=== PATIENT | female | born 1995 ===

== ENCOUNTER 2023-11-20 11:43 | Inpatient (IN) | payer BC ==
[~2023-11-20] VITALS: Ht 170.2 cm; Wt 91.4 kg
[2023-12-04] VITALS (18 sets, daily range): BP systolic 108–137; BP diastolic 69–87; PULSE 73–116; TEMP 98–98.2
--- NOTE | 2023-12-04 05:40 | NUR ---
Ambulatory to unit for scheduled C/S, accompanied by spouse. Oriented to plan of care.
[2023-12-04] MEDS ORDERED: LR 1,000 ML IV SCH ×2 (06:00)
[2023-12-04] MEDS ORDERED: Ondansetron 4 MG/2 ML VIAL IV SCH (06:00)
[2023-12-04] MEDS ORDERED: NATURAL IRON65 MG (06:25)
[2023-12-04] MEDS ORDERED: PREDNISONE10 MG PO (06:25)
[2023-12-04] MEDS ORDERED: LEXAPRO 10MG10 MG PO (06:26)
[2023-12-04] MEDS ORDERED: PRENATAL TABLET PO (06:26)
[2023-12-04 06:43] LABS: BASO % 0.3 % (0.0-2.0); EOS # 0.1 K/mm3 (0.0-0.7); EOS % 0.6 % (0.0-4.0); GRAN # 7.4 K/mm3 (1.4-6.5); GRAN % 69.5 % (42.2-75.2); LYMPH # 2.6 K/mm3 (1.2-3.4); LYMPH % 24.1 % (20.0-51.0); MEAN CELL VOLUME 93 fl (80.0-100.0); MEAN CORPUSCULAR HEMOGLOBIN 31 pg (27-31); MEAN CORPUSCULAR HGB CONC 34 g/dl (33.0-37.0); MONO # 0.5 K/mm3 (0.1-0.6); PLATELET COUNT 317 K/mm3 (130-400); RED BLOOD COUNT 3.86 M/mm3 (4.10-5.30); REDCELL DISTRIBUTION WIDTH-CV 13.2 % (11.5-14.5)
[2023-12-04 06:48] LABS: HEMATOCRIT 35.8 % (37.0-47.0)
[2023-12-04] MEDS ORDERED: Phenylephrine 10 MG/ML VIAL ONE (07:04)
[2023-12-04] MEDS ORDERED: Oxytocin 10 UNITS/ML VIAL ONE (07:04)
[2023-12-04] MEDS ORDERED: ePHEDrine 50 MG/ML VIAL ONE (07:04)
[2023-12-04] MEDS ORDERED: NS 10 ML IV ONE ×2 (07:05→07:57)
[2023-12-04] MEDS ORDERED: Ketorolac 30 MG/ML VIAL ONE (07:47)
[2023-12-04] MEDS ORDERED: dexAMETHasone 10 MG/ML VIAL ONE (07:57)
[2023-12-04] MEDS ORDERED: Magnes Hydrox (MOM) 80 MG/ML 30 ML CUP PO PRN (08:30)
[2023-12-04] MEDS ORDERED: Measles/Mumps/Rubella Virus Vaccine Live w Diluent 0.5 ML VIAL SQ SCH (08:30)
[2023-12-04] MEDS ORDERED: oxyCODONE 5 MG TAB PO PRN (08:30)
[2023-12-04] MEDS ORDERED: Morphine 4 MG/ML VIAL IV PRN (08:30)
[2023-12-04] MEDS ORDERED: Loratadine 10 MG TAB PO PRN (08:30)
[2023-12-04] MEDS ORDERED: Naloxone 0.4 MG/ML VIAL IV PRN (08:30)
[2023-12-04] MEDS ORDERED: Acetaminophen 500 MG TAB PO SCH (08:30)
[2023-12-04] MEDS ORDERED: LR 1,000 ML IV PRN (08:30)
[2023-12-04] MEDS ORDERED: Ondansetron 4 MG/2 ML VIAL IV PRN (08:30)
[2023-12-04] MEDS ORDERED: predniSONE 10 MG TAB PO SCH (09:00)
[2023-12-04] MEDS ORDERED: Ibuprofen 600 MG TAB PO SCH (14:30)
[2023-12-04] MEDS ORDERED: Sennosides/Docusate 8.6-50 MG TAB PO SCH (17:00)
[2023-12-04] MEDS ORDERED: traZODone 50 MG TAB PO PRN (21:00)
[2023-12-05 02:00] VITALS: BP 126/76; PULSE 79; TEMP 98.1
[2023-12-05 07:20] VITALS: BP 133/94; PULSE 93
[2023-12-05] MEDS ORDERED: PERCOCET 325 MG1 TA2 PO (09:05)
[2023-12-05] MEDS ORDERED: MOTRIN 800800 MG/TAB PO (09:05)
== END 2023-12-05 13:00 | disposition home or self-care (01) | DRG 788 ==
LOC: OB 12-04 05:31
PROVIDERS: ADMIT Obstetrics & Gynecology
PROC: 10D00Z1 Extraction of Products of Conception, Low, Open Approach (ICD-10-PCS; principal; 2023-12-04)
DX: O34.211 Maternal care for low transverse scar from previous cesarean delivery (principal); O99.344 Other mental disorders complicating childbirth; F41.9 Anxiety disorder, unspecified; M06.9 Rheumatoid arthritis, unspecified; O99.892 Other specified diseases and conditions complicating childbirth; F32.A Depression, unspecified; Z37.0 Single live birth; Z3A.39 39 weeks gestation of pregnancy; Z88.0 Allergy status to penicillin; Z88.2 Allergy status to sulfonamides; Z88.8 Allergy status to other drugs, medicaments and biological substances
CPT/HCPCS: J0665; J0690; J1100; J1885; J2371; J2405; J2590; J2765; J7120; J7512